=== PATIENT | male | born 2000 | race African-American/Black ===

== ENCOUNTER 2020-09-20 10:34 | Emergency (ER) | payer SELFPAY ==
[2020-09-20] MEDS ORDERED: Acetaminophen 500 MG TAB ONE (12:24)
== END 2020-09-20 12:27 | disposition home or self-care (01) ==
LOC: CSHERS 10:34
DX: B34.9 Viral infection, unspecified (principal); J45.909 Unspecified asthma, uncomplicated
CPT/HCPCS: 99283